=== PATIENT | female | born 1990 | race Caucasian/White ===

== ENCOUNTER 2017-12-22 07:10 | Emergency (ER) | payer OTHER ==
[2017-12-22] MEDS ORDERED: ACETAMINOPHEN 325 MG TABLET (FP) PO ONE (07:43)
[2017-12-22] MEDS ORDERED: ACETAMINOPHEN 325 MG TABLET (FP) ONE (07:46)
--- NOTE | 2017-12-22 07:49 | PDOC ---
History of Present Illness - General Chief Complaint: Ear Problem Stated Complaint: RIGHT EAR PAIN Time Seen by Provider: 12/22/17 07:30 History Source: Patient Exam Limitations: No Limitations - History of Present Illness Initial Comments: 12/22/17 08:11 27-year-old female presents to the emergency room with complaints of right ear pain. She saw her primary physician yesterday who gave her Ciprodex drops. However last night the pain was 10 out of 10 and she could not sleep. She also has nasal congestion as well as a cold. She has not taken anything for the pain nor has she taken anything for her nasal congestion. Denies fever, cough, headache, nausea, vomiting. Denies past medical history, surgical history States she has an irregular. Last menstrual period was March. Her PCP is Aundrea Muller. Past History - Past Medical History Allergies/Adverse Reactions: Allergies Allergy/AdvReac Type Severity Reaction Status Date / Time No Known Allergies Allergy Verified 12/22/17 07:27 Home Medications: Ambulatory Orders Amoxicillin/Potassium Clav [Augmentin 875-125 Tablet] 1 each PO BID #14 tablet 12/22/17 Ciprofloxacin HCl/Dexameth [Ciprodex Otic Suspension] 4 drop BID 12/22/17 Oxymetazoline HCl [Afrin] 15 ml NS BID 3 Days #1 mist 12/22/17 COPD: No Other medical history: fatty liver - Suicide/Smoking/Psychosocial Hx Smoking History: Never smoked Review of Systems - Review of Systems Able to Perform ROS?: Yes Constitutional: Yes: See HPI. No: Chills, Fever HEENTM: Yes: See HPI, Ear Pain, Nose Congestion. No: Ear Discharge Respiratory: Yes: See HPI Cardiac (ROS): No: Symptoms Reported *Physical Exam - Vital Signs Last Vital Signs Temp Pulse Resp BP Pulse Ox 98.4 F 73 18 131/93 99 12/22/17 07:23 12/22/17 07:23 12/22/17 07:23 12/22/17 07:23 12/22/17 07:23 - Physical Exam HEENT: positive: SUPRIYA, Normal Voice, Pharynx Normal, Nasal Congestion, Rhinorrhea, Sinus Tenderness, Other (right ear with crusting and slight erythema but difficult to see due to otitis externa and dry drop use. left ear no redness). negative: Pharyngeal Erythema, Tonsillar Exudate, Tonsillar Erythema Medical Decision Making - Medical Decision Making 12/22/17 08:14 Patient seen and examined. Patient is complaining of some right ear pain and nasal congestion Plan Urine for hCG Discharge with amoxicillin and nasal decongestion *DC/Admit/Observation/Transfer Diagnosis at time of Disposition: Ear pain, right Otitis externa Qualifiers: Otitis externa type: other infective Chronicity: acute Laterality: right Qualified Code(s): H60.391 - Other infective otitis externa, right ear - Discharge Dispostion Disposition: HOME Admit: No - Referrals Referrals: Ruby Moreira MD [Primary Care Provider] - - Patient Instructions Printed Discharge Instructions: DI for Otitis Externa Additional Instructions: Discharge instructions 1. Please follow up with your primary physician within the next few days and explain that you have been seen here in the Emergency Room for right ear pain. 2. If you experience any worsening of symptoms, such as fever, increase ear pain please return to the ER 3. Rest, use the nasal decongestant spray for 3 days only! continue with the ear drops using cotton at night and do not push in ear canal. Take antibiotics as prescribed. 4. Drink plenty of water and blow nose frequently. No swimming, no q tip use in canal, can take tylenol for pain - Post Discharge Activity
[2017-12-22 08:02] VITALS: BP 131/93; PULSE 73; TEMP 98.4; BMI 33.0
== END 2017-12-22 08:47 | disposition home or self-care (01) ==
LOC: JER 07:10
DX: H60.391 Other infective otitis externa, right ear (principal)
CPT/HCPCS: 84703; 99282-25

== ENCOUNTER 2020-03-29 12:13 | Inpatient (IN) | payer OTHER ==
[~2020-03-29 12:13] MED LIST: ceFAZolin SODIUM 1 GM VIAL IVPB ONE
[2020-03-29] MEDS ORDERED: ELECTROLYTE-148 SOLN 500 ML IV ONE (12:52)
[2020-03-29] MEDS ORDERED: CITRIC ACID/SODIUM CITRATE 30 ML UNIT-DOSE CUP PO ONE (12:52)
[2020-03-29 13:07] LABS: HEMATOCRIT 32.8 % (32.4-45.2); HEMOGLOBIN 10.6 GM/dL (10.7-15.3); MCH 24.5 pg (25.7-33.7); MCHC 32.4 g/dl (32.0-36.0); MEAN CELL VOLUME 75.8 fl (80-96); MEAN PLT VOLUME 10.9 fl (7.5-11.1); PLATELET COUNT 53 K/MM3 (134-434); RBC 4.33 M/mm3 (3.60-5.2); RDW 16.8 % (11.6-15.6); WHITE BLOOD COUNT 4.2 K/mm3 (4.0-10.0)
[2020-03-29 13:15] LABS: INR 0.93 (0.83-1.09)
[2020-03-29 13:18] LABS: ACTIVATED PTT 29.8 SECONDS (25.2-36.5)
[2020-03-29 13:40] VITALS: BMI 35.9
[2020-03-29 13:41] LABS: ALBUMIN 2.6 g/dl (3.4-5.0); BILIRUBIN,TOTAL 0.6 mg/dL (0.2-1); BLOOD UREA NITROGEN 8.3 mg/dL (7-18); CALCIUM 8.4 mg/dL (8.5-10.1); CREATININE 0.7 mg/dL (0.55-1.3); POTASSIUM 4.1 mmol/L (3.5-5.1); TOT PROT 6.5 g/dl (6.4-8.2)
--- NOTE | 2020-03-29 13:42 | HP ---
Past Medical History - Primary Care Physician PCP:: Gabe Garcia - Admission Chief Complaint: Scheduled repeat section History of Present Illness: complicated by ITP, A2GDM, obesity, prior C/S x 1. History Source: Patient Limitations to Obtaining History: No Limitations - Past Medical History [employer]: No: Alzheimer's, CVA, Dementia, Migraine, Multiple Sclerosis, Peripheral Neuropathy, Parkinson's, Seizure, Syncope, TIA, Vertigo, Other Cardiovascular: No: AFIB, Aneurysm, Aortic Insufficiency, Aortic Stenosis, CAD, CHF, Deep Vein Thrombosis, HTN, Hyperlipdemia, VT, Mitral Insufficiency, Mitral Stenosis, Murmur, Pulmonary Hypertension, Other Pulmonary: No: Asthma, Bronchitis, Cancer, COPD, O2 Dependent, Pneumonia, Previously Intubated, Pulmonary Embolus, Pulmonary Fibrosis, Sleep Apnea, Other Gastrointestinal: No: Ascites, Cancer, Constipation, Crohn's Disease, Dive rticulitis, Diverticulosis, Esophageal Varices, Gastritis, GERD, GI Bleed, Hemorrhoids, Hiatal Hernia, Inflamatory Bowel Disease, Irritable Bowel Disease, Pancreatitis, Peptic Ulcer Disease, Ulcerative Colitis, Other Hepatobiliary: No: Cirrhosis, Cholelithiasis, Cholecystitis, Choledocholithiasis, Hepatitis A, Hepatitis B, Hepatitis C, Other Renal/: No: Renal Failure, Renal Inusuff, BPH, Cancer, Hematuria, Hemodialysis, Neurogenic Bladder, Renal Calculi, UTI, Other Reproductive: No: Ectopic , Endometriosis, Fibroids, PID, Polycystic Ovary Syndrome, Postmenopausal, Other Heme/Onc: No: Anemia, B12 Deficiency, Bleeding Disorder, Cancer, Current Chemotherapy, Current Radiation Therapy, Hemochromatosis, Hypercoaguable State, Myeloproliferative Synd, Sickle Cell Disease, Sickle Cell Trait, Thrombocytopenia, Other Psych: No: Addictions, Anxiety, Bipolar, Depression, Panic, Psychosis, Schizophrenia, Other Musculoskeletal: No: Bursitis, Chronic low back pain, Hemiparesis, Hemiplegia, Osteoarthritis, Paraplegia, Other Rheumatology: No: Fibromyalgia, Gout, Lupus, Rheumatoid Arthritis, Sarcoidosis, Vasculitis, Other ENT: No: Allergic Rhinitis, Sinusitis, Other Endocrine: No: Raman's Disease, Eri's Disease, Diabetes Insipidus, Diabetes Mellitus, Hyperparathyroidism, Hyperthyroidism, Hypothyroidism, Osteopenia, SIADH, Other Dermatology: No: Basal Cell, Cellulitis, Eczema, Melanoma, Psoriasis, Squamous Cell, Other - Past Surgical History Past Surgical History: Yes: Hx Myomectomy: No Hx Transabdominal Cerclage: No - Smoking History Smoking history: Never smoked Have you smoked in the past 12 months: No - Alcohol/Substance Use Hx Alcohol Use: No History of Substance Use: reports: None - Social History History of Recent Travel: No Home Medications - Allergies Allergies/Adverse Reactions: Allergies Allergy/AdvReac Type Severity Reaction Status Date / Time No Known Allergies Allergy Verified 12/18/19 23:22 - Home Medications Home Medications: Ambulatory Orders Vitamins (Sjr) - 1 tab PO DAILY 12/19/19 Nitrofurantoin Monohyd/M-Cryst [Macrobid -] 100 mg PO BID #28 capsule 12/22/19 Ondansetron [Zofran -] 4 mg PO TID PRN 7 Days #20 tablet 12/22/19 Family Medical History Family History: Unremarkable Review of Systems - Review of Systems Constitutional: reports: No Symptoms Eyes: reports: No Symptoms HENT: reports: No Symptoms Neck: reports: No Symptoms Cardiovascular: reports: No Symptoms Respiratory: reports: No Symptoms Gastrointestinal: reports: No Symptoms Genitourinary: reports: No Symptoms Breasts: reports: No Symptoms Reported Musculoskeletal: reports: No Symptoms Integumentary: reports: No Symptoms Neurological: reports: No Symptoms Endocrine: reports: No Symptoms Hematology/Lymphatic: reports: No Symptoms Psychiatric: reports: No Symptoms Physical Exam - Maternity Constitutional: Yes: No Distress HENT: Yes: Atraumatic Cardiovascular: Yes: Regular Rate and Rhythm Breast(s): Yes: Other - Abdominal Exam/OB Contractions: Yes Regularity: Irregular Intensity: Unaware Heart Rate (range): 145 Category: I Accelerations: Uniform Decelerations: None - Vaginal Exam/OB Vaginal Bleeding: No - Physical Exam Musculoskeletal: Yes: WNL Extremities: Yes: WNL Edema: Yes Edema: LLE: Trace, RLE: Trace Integumentary: Yes: WNL Deep Tendon Reflex Grade: Normal +2 ...Motor Strength: WNL Psychiatric: Yes: Alert, Oriented - Labs Lab Results: CBC, BMP 03/29/20 12:40 Imaging - Results Ultrasound: Report Reviewed Assessment/Plan 29 y/o @ 39.0wks, ITP, A2GDM, H/O covid, prior C/S x 1, morbid obesity, and H/O blood transfusion with last delivery. Presenting for scheduled repeat C/S. Plt 53 today and patient has been previously evaluated for hematology, anesthesia and MFM. Patient was counseled regarding risks and complications of R CS and bleeding,including but not limited to PPH and need for hysterectomy. -Proceed with surgery -PLT on hold -repeat T&S -NICU informed
[2020-03-29] MEDS ORDERED: morphine SULFATE/PF 0.5 MG/ML (2cc Syringe - QUVA) ONE (14:33)
[2020-03-29] MEDS ORDERED: morphine SULFATE/PF 0.5 MG/ML (2cc Syringe - QUVA) EP ONE (14:45)
[2020-03-29] MEDS ORDERED: ceFAZolin SODIUM 1 GM VIAL IVPB ONE (14:50)
[2020-03-29] MEDS ORDERED: ceFAZolin SODIUM 1 GM VIAL ONE (14:58)
[2020-03-29] MEDS ORDERED: KETOROLAC TROMETHAMINE 30 MG/1 ML VIAL ONE (14:58)
[2020-03-29] MEDS ORDERED: OXYTOCIN 10 UNITS/ML VIAL ONE ×2 (14:58→16:53)
[2020-03-29] MEDS ORDERED: ONDANSETRON 4 MG/2 ML VIAL IVPUSH PRN (16:11)
[2020-03-29] MEDS ORDERED: LACTATED RINGERS SOLUTION 1,000 ML IV SCH (16:15)
--- NOTE | 2020-03-29 16:21 | OP ---
Operative Note - Note: Operative Date: 03/29/20 ([id number]) Pre-Operative Diagnosis: 29 y/o @ 39.0 wks, A2GDM, ITP, prior C/S x 1, obese Operation: RLTCS Post-Operative Diagnosis: Same as Pre-op Surgeon: Gabe Garcia Bilingual Call Center Representative: Ashok Trotter Anesthesia: Spinal Estimated Blood Loss (mls): 900 Drains, Volume Out (mls): 200 (clear urine) Fluid Volume Replaced (mls): 1,000 Operative Report Dictated: Yes
[2020-03-29 16:35] VITALS: RESP 16; O2SAT 100
[2020-03-29] MEDS: ACETAMINOPHEN 1000 MG/100 ML VIAL (NON FORMULARY) IVPB ONE (17:50)
[2020-03-29] MEDS: OXYTOCIN 20 UNITS in 0.9% NS 20 UNIT/1,000 ML INFUS.BAG IV SCH (17:50)
[2020-03-29] MEDS ORDERED: ACETAMINOPHEN INJECTION 100 ML IVPB ONE (18:12)
[2020-03-29 20:32] LABS: BASO % 0.2 % (0-2.0); HEMATOCRIT 27.2 % (32.4-45.2); HEMOGLOBIN 8.8 GM/dL (10.7-15.3); LYMPH % 12.8 % (8-40); MCH 24.5 pg (25.7-33.7); MCHC 32.3 g/dl (32.0-36.0); MEAN CELL VOLUME 75.9 fl (80-96); MEAN PLT VOLUME 10.8 fl (7.5-11.1); MONO % 5.9 % (3.8-10.2); NEUT % 81.1 % (42.8-82.8); PLATELET COUNT 50 K/MM3 (134-434); RBC 3.59 M/mm3 (3.60-5.2); RDW 17.1 % (11.6-15.6); WHITE BLOOD COUNT 6.5 K/mm3 (4.0-10.0)
[2020-03-29] MEDS ORDERED: METHYLERGONOVINE MALEATE 0.2 MG/1 ML AMP IM ONE (21:28)
--- NOTE | 2020-03-29 23:31 | PN ---
Progress Note (short form) - Note Progress Note: Patient evaluated at bedside for increased VB per nursing. Patient resting comfortable in bed vitals: stable Abd: soft, n/d, appropriately tender, fundus is firm SVE: moderate lochia, no active bleeding, no clots note din lower uterine segment, cervix 2 cm dilated. Burnette in place and clear urine ext: SCDs in place A/P: POD # 0 in stable condition, S/P repeat CD and ITP, Plt 50K, surgery complicated for adhesive disease. -Methergine series -AM labs -additional dose of ancef
[2020-03-29] MEDS ORDERED: CEFAZOLIN 1 GM in DEXTROSE 5%-WATER - 50 ML IVPB ONE (23:55)
[2020-03-29] MEDS ORDERED: CEFAZOLIN 1 GM/D5W 1 GM/50 ML BAG IVPB ONE (23:55)
[2020-03-30] MEDS: METHYLERGONOVINE MALEATE 0.2 MG TABLET (FP) PO SCH ×5 (02:04→17:32)
[2020-03-30] MEDS: SIMETHICONE 80 MG TAB.CHEW (FP) PO PRN ×2 (06:35→17:32)
[2020-03-30] MEDS: oxyCODONE HCL 5 MG TABLET PO PRN ×3 (06:35→14:50)
[2020-03-30 08:04] LABS: BASO % 0.2 % (0-2.0); HEMATOCRIT 25.1 % (32.4-45.2); HEMOGLOBIN 8.1 GM/dL (10.7-15.3); LYMPH % 17.9 % (8-40); MCH 24.3 pg (25.7-33.7); MCHC 32.5 g/dl (32.0-36.0); MEAN CELL VOLUME 74.7 fl (80-96); MEAN PLT VOLUME 10.9 fl (7.5-11.1); MONO % 5.8 % (3.8-10.2); NEUT % 76.1 % (42.8-82.8); PLATELET COUNT 62 K/MM3 (134-434); RBC 3.35 M/mm3 (3.60-5.2); RDW 17.1 % (11.6-15.6); WHITE BLOOD COUNT 6.4 K/mm3 (4.0-10.0)
--- NOTE | 2020-03-30 08:13 | PN ---
Post Progress Note - Subjective Subjective: Burnette removed, patient sitting in chair and reports dizziness, dressing dry and in place, slight nausea. Intra-operative finding and possible need for blood transfusion reviewed with patient. All questions answered and importance of relaying delivery findings and recovery complications for next stressed. Patient expressed understanding Post Day: 1 Type of Delivery: Repeat C/S Vital Signs: Vital Signs Temperature 99.1 F 03/30/20 04:50 Pulse Rate 96 H 03/30/20 04:50 Respiratory Rate 20 03/30/20 06:00 Blood Pressure 106/72 03/30/20 04:50 O2 Sat by Pulse Oximetry (%) 97 03/30/20 00:28 Uterus: Yes: Fundus Firm Incision: Yes: Dressing dry and intact Abdomen/GI: Yes: Abdomen soft Lochia, amount: Moderate Extremities: Yes: Calves non-tender Perineum: Yes: Intact Activity: Other (out of bed in chair) - Labs Labs: CBC WBC 6.5 K/mm3 (4.0-10.0) 03/29/20 20:08 RBC 3.59 M/mm3 (3.60-5.2) L 03/29/20 20:08 Hgb 8.8 GM/dL (10.7-15.3) L 03/29/20 20:08 Hct 27.2 % (32.4-45.2) L D 03/29/20 20:08 MCV 75.9 fl (80-96) L 03/29/20 20:08 MCH 24.5 pg (25.7-33.7) L 03/29/20 20:08 MCHC 32.3 g/dl (32.0-36.0) 03/29/20 20:08 RDW 17.1 % (11.6-15.6) H 03/29/20 20:08 Plt Count 50 K/MM3 (134-434) L 03/29/20 20:08 MPV 10.8 fl (7.5-11.1) 03/29/20 20:08 Absolute Neuts (auto) 5.3 K/mm3 (1.5-8.0) 03/29/20 20:08 Neutrophils % 81.1 % (42.8-82.8) D 03/29/20 20:08 Lymphocytes % 12.8 % (8-40) D 03/29/20 20:08 Monocytes % 5.9 % (3.8-10.2) 03/29/20 20:08 Eosinophils % 0.0 % (0-4.5) D 03/29/20 20:08 Basophils % 0.2 % (0-2.0) 03/29/20 20:08 Nucleated RBC % 0 % (0-0) 03/29/20 20:08 Assessment/Plan POD # 1 S/P RLTCS complicated by pronounced thrombocytopenia and adhesive disease, reporting dizziness, morbidly obese. -Continue PP/post-op care -F/U Am CBC and consider PRBC as required -Encourage ambulation once presentation improves -D/C on POD # 3 a
[2020-03-30] MEDS: FERROUS SO4 325 MG TABLET (FP) PO SCH (09:55)
--- NOTE | 2020-03-30 10:13 | PN ---
Progress Note (short form) - Note Progress Note: Anesthesia Post op/pain Pt seen and examined S:Alert and awake comfortable O: Vital Signs Temperature 99.1 F 03/30/20 04:50 Pulse Rate 96 H 03/30/20 04:50 Respiratory Rate 03/30/20 06:00 Blood Pressure 106/72 03/30/20 04:50 O2 Sat by Pulse Oximetry (%) 97 03/30/20 00:28 CBC, BMP 03/30/20 07:37 03/29/20 12:40 A/P s/p c section Doing well post op Continue current care. Darryl Kennedy MD
[2020-03-30] MEDS ORDERED: BISACODYL 10 MG SUPP.RECT RC PRN (16:01)
[2020-03-30] MEDS: ACETAMINOPHEN 325 MG TABLET (FP) PO PRN (17:32)
[2020-03-31] MEDS: oxyCODONE HCL 5 MG TABLET PO PRN ×3 (06:02→20:14)
[2020-03-31] MEDS: ACETAMINOPHEN 325 MG TABLET (FP) PO PRN ×2 (06:03→10:17)
[2020-03-31] MEDS: SIMETHICONE 80 MG TAB.CHEW (FP) PO PRN ×3 (06:06→20:14)
--- NOTE | 2020-03-31 06:22 | OP ---
DATE OF OPERATION: 03/29/2020 PREOPERATIVE DIAGNOSES: A 29-year-old 3, para 1-0-1-1 at 39 weeks of gestation, A2 gestational diabetic, immune thrombocytopenic purpura, prior section x1, morbidly obese, prior COVID-19 positive. POSTOPERATIVE DIAGNOSES: A 29-year-old 3, para 1-0-1-1 at 39 weeks of gestation, A2 gestational diabetic, immune thrombocytopenic purpura, prior section x1, morbidly obese, prior COVID-19 positive. PROCEDURE: Repeat low transverse section. SURGEON: Donn Garcia MD TECTONOPHYSICIST: TATUM Kramer ANESTHESIA: Spinal. ANESTHESIOLOGIST: Malik Acosta MD ESTIMATED BLOOD LOSS: 900 mL. URINE OUTPUT: Clear urine 200 mL. INTRAVENOUS FLUIDS: Crystalloid 1 L. COMPLICATIONS: Adhesive disease. FINDINGS: Low abdominal scar consistent with prior section. Pronounced amount of subcutaneous adipose tissue. The fascia was slightly fibrotic and adherent to the underlying rectus muscles. The rectus muscles were fused to each other in the midline. The bladder was adherent to the lower uterine segment, and there were thick adhesions involving the anterior peritoneal wall, the mid anterior aspect of the uterus, the rectus muscles, and the bladder. The bladder was adherent to the inferior aspect of the rectus muscles and the fascia. The lower uterine segment was not effaced and inaccessible due to adhesive disease. The infant was in cephalic presentation ROT, no nuchal cord, and placenta was anterior. Live viable male infant. Bilateral tubes and ovaries consistent with normal anatomy. Lap and instrument count was reported as correct x2 by the staff multiple times during the procedure. IMPLANT: Surgicel. DESCRIPTION OF PROCEDURE: The patient was taken to the operating room where anesthesia was found to be adequate. She was then prepped and draped in the normal sterile fashion. A urinary Burnette catheter was placed atraumatically. Appropriate timeout took place. Pfannenstiel skin incision was made with the scalpel following prior section scar. The incision was carried to the underlying fascia through a pronounced amount of subcutaneous adipose tissue. The fascia was incised in the midline and incision extended laterally with sharp dissection. The underlying rectus muscles were dissected off sharply. The rectus muscles were fused to each other in the midline. Incidental entry into the peritoneal cavity took place while the fascia was dissected off the underlying rectus muscle superiorly. Palpation of the point of entry revealed thick adhesions at the mid portion of the anterior aspect of the uterus. The incision was extended laterally with careful sharp and blunt dissection. Adequate exposure revealed adhesions involving the posterior aspect of the rectus muscle, part of the fascia superiorly and the anterior aspect of the lower portion of the fundus and the bladder. The adhesions were identified, palpated by the surgeon. Sharp dissection took place at its proximal end adjacent to the uterus with sharp dissection. Adequate exposure achieved for a transverse uterine incision at the level of the lysis of adhesions. The incision was extended laterally with blunt dissection. Amniotomy revealed clear amniotic fluid. was delivered through the surgical incision without difficulty. The umbilical cord was clamped and cut after delay and the was handed off to the waiting NICU staff. Samples for gases were obtained. The placenta was elevated manually and intact. The uterus was exteriorized through the surgical incision. The uterine incision was reapproximated with 0 Polysorb running locked suture. Excellent structural reapproximation and hemostasis with 1 layer of suture. The raw edges of the lysis of adhesions on the anterior aspect of the uterus displayed minimal oozing which controlled with a combination of Bovie cautery and 2 interrupted [id number] 2-0 chromic stitches. Excellent hemostasis was noted from the field. The inferior aspect of the adhesions was examined and no active bleeding was noted. The bladder dome was noted to be underneath the rectus muscles and the thick adhesions. No evidence of bladder involvement noted on exam. The rectal muscle fascial interface was noted to be dry. The rectus muscle edges and the peritoneal edges were noted to be dry. Once again, the gutters were cleared of all clots and debris and no active bleeding was noted. Minimal oozing from the raw edges of the lysis of adhesions on the anterior aspect of the uterus was controlled with Surgicel. The fascial incision was then reapproximated with 0 Polysorb running nonlocked suture. Excellent structural reapproximation achieved and confirmed by digital palpation by the surgeon. At this point in time, the 2nd instrument and sponge count was communicated as correct by the staff. The subcutaneous tissues were copiously irrigated and bleeders neutralized with Bovie cautery. The subcutaneous tissues were reapproximated with 2-0 chromic sutures. Skin incision reapproximated with surgical radha. Patient in stable condition onto the recovery room. Final instrument count reported as correct x2 by the staff. DONN GARCIA MD [id number] MTDTasha
[2020-03-31 09:07] LABS: BASO % 0.2 % (0-2.0); EOS % 0.2 % (0-4.5); HEMATOCRIT 24.4 % (32.4-45.2); HEMOGLOBIN 7.9 GM/dL (10.7-15.3); LYMPH % 16.7 % (8-40); MCH 24.6 pg (25.7-33.7); MCHC 32.4 g/dl (32.0-36.0); MEAN CELL VOLUME 75.8 fl (80-96); MEAN PLT VOLUME 10.9 fl (7.5-11.1); MONO % 5.4 % (3.8-10.2); NEUT % 77.5 % (42.8-82.8); PLATELET COUNT 81 K/MM3 (134-434); RBC 3.22 M/mm3 (3.60-5.2); RDW 17.3 % (11.6-15.6); WHITE BLOOD COUNT 7.1 K/mm3 (4.0-10.0)
--- NOTE | 2020-03-31 10:13 | PN ---
Post Progress Note - Subjective Subjective: c/o painscale 4-01/17 attemptimg BF also voiding without difficulty no c/o dizziness ambulating Post Day: 2 Type of Delivery: Repeat C/S Vital Signs: Vital Signs Temperature 98.6 F 03/31/20 09:37 Pulse Rate 87 03/31/20 09:37 Respiratory Rate 18 03/31/20 09:37 Blood Pressure 128/79 03/31/20 09:37 O2 Sat by Pulse Oximetry (%) 97 03/30/20 00:28 Breast Exam: Yes: Soft. No: Engorged Uterus: Yes: Fundus Firm, Non-tender Incision: Yes: Dressing dry and intact (to be changed ) Abdomen/GI: Yes: Abdomen soft, Passing flatus (bm done ), Tolerating PO (diet ). No: Abdominal Distention, Tender Lochia: Yes: Rubra Lochia, amount: Small Extremities: Yes: Calves non-tender Perineum: Yes: Intact Activity: Ambulating - Labs Labs: CBC WBC 7.1 K/mm3 (4.0-10.0) 03/31/20 08:39 RBC 3.22 M/mm3 (3.60-5.2) L 03/31/20 08:39 Hgb 7.9 GM/dL (10.7-15.3) L 03/31/20 08:39 Hct 24.4 % (32.4-45.2) L 03/31/20 08:39 MCV 75.8 fl (80-96) L 03/31/20 08:39 MCH 24.6 pg (25.7-33.7) L 03/31/20 08:39 MCHC 32.4 g/dl (32.0-36.0) 03/31/20 08:39 RDW 17.3 % (11.6-15.6) H 03/31/20 08:39 Plt Count 81 K/MM3 (134-434) L D 03/31/20 08:39 MPV 10.9 fl (7.5-11.1) 03/31/20 08:39 Absolute Neuts (auto) 5.5 K/mm3 (1.5-8.0) 03/31/20 08:39 Neutrophils % 77.5 % (42.8-82.8) 03/31/20 08:39 Lymphocytes % 16.7 % (8-40) 03/31/20 08:39 Monocytes % 5.4 % (3.8-10.2) 03/31/20 08:39 Eosinophils % 0.2 % (0-4.5) D 03/31/20 08:39 Basophils % 0.2 % (0-2.0) 03/31/20 08:39 Nucleated RBC % 0 % (0-0) 03/31/20 08:39 Problem List - Problems (1) Status post section routine follow-up Code(s): Z39.2 - ENCOUNTER FOR ROUTINE FOLLOW-UP; Z98.891 - HISTORY OF UTERINE SCAR FROM PREVIOUS SURGERY Assessment/Plan post rc/s #2 stable plt count improving 81 h/h lo 7.9 , hemodynamically stable Plan repeat cbc in AM tomorrow. may consider discharge tomorrow
[2020-03-31] MEDS: FERROUS SO4 325 MG TABLET (FP) PO SCH (10:17)
[2020-03-31] MEDS: OXYTOCIN 20 UNITS in 0.9% NS 20 UNIT/1,000 ML INFUS.BAG IV SCH ×2 (17:06→17:07)
[2020-03-31] MEDS: ACETAMINOPHEN 1000 MG/100 ML VIAL (NON FORMULARY) IVPB ONE (17:09)
[2020-04-01] MEDS: oxyCODONE HCL 5 MG TABLET PO PRN ×2 (03:10→09:24)
[2020-04-01] MEDS: ACETAMINOPHEN 325 MG TABLET (FP) PO PRN ×2 (03:10→09:24)
[2020-04-01] MEDS: SIMETHICONE 80 MG TAB.CHEW (FP) PO PRN (03:11)
--- NOTE | 2020-04-01 08:48 | PN ---
Post Progress Note - Subjective Subjective: Pain controlled. Bleeding stable. No fevers/chills. Post Day: 3 Type of Delivery: Repeat C/S Vital Signs: Vital Signs Temperature 99.4 F 03/31/20 20:29 Pulse Rate 96 H 03/31/20 20:29 Respiratory Rate 20 03/31/20 20:29 Blood Pressure 120/72 03/31/20 20:29 O2 Sat by Pulse Oximetry (%) 97 03/30/20 00:28 Uterus: Yes: Fundus below umbilicus Incision: Yes: Dressing dry and intact Abdomen/GI: Yes: Passing flatus, Tolerating PO Lochia: Yes: Rubra Lochia, amount: Small Extremities: Yes: Calves non-tender Activity: Ambulating - Labs Labs: CBC WBC 7.1 K/mm3 (4.0-10.0) 03/31/20 08:39 RBC 3.22 M/mm3 (3.60-5.2) L 03/31/20 08:39 Hgb 7.9 GM/dL (10.7-15.3) L 03/31/20 08:39 Hct 24.4 % (32.4-45.2) L 03/31/20 08:39 MCV 75.8 fl (80-96) L 03/31/20 08:39 MCH 24.6 pg (25.7-33.7) L 03/31/20 08:39 MCHC 32.4 g/dl (32.0-36.0) 03/31/20 08:39 RDW 17.3 % (11.6-15.6) H 03/31/20 08:39 Plt Count 81 K/MM3 (134-434) L D 03/31/20 08:39 MPV 10.9 fl (7.5-11.1) 03/31/20 08:39 Absolute Neuts (auto) 5.5 K/mm3 (1.5-8.0) 03/31/20 08:39 Neutrophils % 77.5 % (42.8-82.8) 03/31/20 08:39 Lymphocytes % 16.7 % (8-40) 03/31/20 08:39 Monocytes % 5.4 % (3.8-10.2) 03/31/20 08:39 Eosinophils % 0.2 % (0-4.5) D 03/31/20 08:39 Basophils % 0.2 % (0-2.0) 03/31/20 08:39 Nucleated RBC % 0 % (0-0) 03/31/20 08:39 Assessment/Plan 29yo s/p RLTCS c/b ITP, POD#3 Routine PP care Labs reviewed, plts trending up OOB, ambulate D/C to home today Federico Duke MD
[2020-04-01 09:03] LABS: BASO % 0.2 % (0-2.0); HEMATOCRIT 23.4 % (32.4-45.2); HEMOGLOBIN 7.5 GM/dL (10.7-15.3); LYMPH % 27.1 % (8-40); MCH 24.6 pg (25.7-33.7); MCHC 32.1 g/dl (32.0-36.0); MEAN CELL VOLUME 76.4 fl (80-96); MEAN PLT VOLUME 10.2 fl (7.5-11.1); MONO % 4.5 % (3.8-10.2); NEUT % 67.2 % (42.8-82.8); PLATELET COUNT 83 K/MM3 (134-434); RBC 3.06 M/mm3 (3.60-5.2); RDW 17.5 % (11.6-15.6); WHITE BLOOD COUNT 6.7 K/mm3 (4.0-10.0)
[2020-04-01] MEDS: FERROUS SO4 325 MG TABLET (FP) PO SCH (09:21)
[2020-04-01 09:35] VITALS: BP 115/71; PULSE 78; TEMP 98.5
--- NOTE | 2020-04-01 18:47 | PATH ---
Surgical Pathology Report Patient Name: BECKY RSOADO Med. Rec. #: [id number] /Age/Gender: 1990 (Age: 29) / F Account: [id number] Location: [facility] OBS/AEROPLANE PILOT Taken: 03/29/2020 Received: 03/29/2020 Reported: 04/01/2020 Physicians: Gabe Garcia MD Specimen(s) Received PLACENTA Clinical History section Final Diagnosis PLACENTA, SECTION: 434 G THIRD TRIMESTER PLACENTA WITH TRIVASCULAR UMBILICAL CORD AND UNREMARKABLE PLACENTAL MEMBRANES. Electronically Signed Becky Roldan M.D. Gross Description The specimen is received fresh labeled placenta and is a 434 gram, 19.5 x 16.0 x 2.6 cm. placenta with attached membranes and umbilical cord. The attached membranes are veliz, translucent with focal opacities and insert marginally. The umbilical cord measures 21 cm. in length and averages 1.2 cm. in diameter. The cord inserts eccentrically, 1.5 cm. to the nearest margin. No true knots or strictures are identified. Cut surface of the umbilical cord reveals 3 vessels. The surface is hayden-blue with minimal fibrin deposition and appropriate caliber vessels. The maternal surface is red-brown with focal defects. Sectioning reveals red-brown, spongy parenchyma. No lesions are identified. Nurse Rn Bsn sections are submitted in three cassettes as follows: 1- membrane rolls and umbilical cord; 2-3- full thickness sections of placenta. /03/31/2020 [facility]/03/31/2020
== END 2020-04-01 10:58 | disposition home or self-care (01) | DRG 540 ==
LOC: JLDR 12:13 → J3W 18:00
PROVIDERS: ADMIT Student in an Organized Health Care Education/Training Program; ATTEND Student in an Organized Health Care Education/Training Program
PROC: 0UN90ZZ Release Uterus, Open Approach (ICD-10-PCS; 2020-03-29)
PROC: 10D00Z1 Extraction of Products of Conception, Low, Open Approach (ICD-10-PCS; principal; 2020-03-29 13:00)
DX: O24.420 Gestational diabetes mellitus in childbirth, diet controlled (principal); Z3A.39 39 weeks gestation of pregnancy; Z37.0 Single live birth; O34.211 Maternal care for low transverse scar from previous cesarean delivery; N73.6 Female pelvic peritoneal adhesions (postinfective); O99.214 Obesity complicating childbirth; E66.9 Obesity, unspecified; Z86.19 Personal history of other infectious and parasitic diseases
CPT/HCPCS: 36415; 80053; 82962; 85025; 85027; 85610; 85730; 86850; 86900; 86901; 88307-TC; J0131

== ENCOUNTER 2023-01-14 06:26 | Emergency (ER) | payer OTHER ==
[2023-01-14 06:34] VITALS: TEMP 98.1; BMI 34.6
[2023-01-14] MEDS ORDERED: EPINEPHrine 1:1,000 1,000 MCG/ML ML IV ONE (07:45)
[2023-01-14] MEDS ORDERED: SODIUM CHLORIDE 0.9% 500 ML INFUS.BAG IV ONE (07:50)
[2023-01-14] MEDS ORDERED: EPINEPHrine 1:1,000 1,000 MCG/ML ML SQ ONE ×2 (07:50→07:59)
[2023-01-14] MEDS ORDERED: FAMOTIDINE 20 MG/50 ML IVPB 20 MG/50 ML MG IVPB ONE ×2 (07:52→08:00)
[2023-01-14] MEDS ORDERED: methylPREDNISolone NA SUCC 125 MG/2 ML VIAL IVPUSH ONE (07:52)
[2023-01-14] MEDS ORDERED: EPINEPHrine/PF 1 MG/1 ML (1:1,000) AMPULE ONE (07:59)
[2023-01-14] MEDS ORDERED: methylPREDNISolone NA SUCC 125 MG/2 ML VIAL ONE (08:00)
[2023-01-14 10:14] VITALS: BP 116/64; PULSE 98; RESP 18
== END 2023-01-14 10:19 | disposition home or self-care (01) ==
LOC: JER 06:26
PROC: 3E033GC Introduction of Other Therapeutic Substance into Peripheral Vein, Percutaneous Approach (ICD-10-PCS; principal; 2023-01-14)
PROC: 3E033GC Introduction of Other Therapeutic Substance into Peripheral Vein, Percutaneous Approach (ICD-10-PCS; 2023-01-14)
PROC: 3E033GC Introduction of Other Therapeutic Substance into Peripheral Vein, Percutaneous Approach (ICD-10-PCS; 2023-01-14)
PROC: 3E023GC Introduction of Other Therapeutic Substance into Muscle, Percutaneous Approach (ICD-10-PCS; 2023-01-14)
DX: L50.9 Urticaria, unspecified (principal); T78.40XA Allergy, unspecified, initial encounter; R19.7 Diarrhea, unspecified
CPT/HCPCS: 99284-25

== ENCOUNTER 2023-04-14 21:39 | Emergency (ER) | payer OTHER ==
[2023-04-14 21:55] VITALS: BP 153/83; PULSE 111; RESP 18; TEMP 99.5; BMI 36.8
[2023-04-14] MEDS ORDERED: KETOROLAC TROMETHAMINE 30 MG/1 ML VIAL IM ONE (22:04)
[2023-04-14] MEDS ORDERED: KETOROLAC TROMETHAMINE 30 MG/1 ML VIAL ONE (22:05)
[2023-04-14] MEDS ORDERED: OFLOXACIN 0.3% OTIC SOLUTION 5 ML BOTTLE AD ONE (22:05)
== END 2023-04-14 22:36 | disposition home or self-care (01) ==
LOC: JERFT 21:39
PROC: 3E0233Z Introduction of Anti-inflammatory into Muscle, Percutaneous Approach (ICD-10-PCS; principal; 2023-04-14)
DX: H92.01 Otalgia, right ear (principal); H93.8X1 Other specified disorders of right ear; H60.391 Other infective otitis externa, right ear
CPT/HCPCS: 99284-25